=== PATIENT | female | born 1990 | race American Indian/Alaskan Native ===

== ENCOUNTER 2017-08-14 19:00 | Outpatient (CLI) | payer OTHER ==
[2017-08-14] MEDS ORDERED: LACTATED RINGERS 1,000 ML IV ONE (19:10)
[2017-08-14 19:29] VITALS: BP 115/70
[2017-08-14 20:39] LABS: Bilirubin,Urine NEG (Negative); Blood,Urine NEG (Negative); Color,Urine Yellow (Yellow); Nitrite,Urine NEG (Negative); Protein,Urine <15 mg/dL mg/dL (Negative); Urobilinogen,Urine < 2.0 mg/dL (<2.0); WBC,Urine < 1.0 /HPF (0.0-6.0)
== END 2017-08-14 21:36 | disposition home or self-care (01) ==
LOC: TRG 19:00
PROVIDERS: ATTEND Obstetrics & Gynecology Gynecology
DX: O47.02 False labor before 37 completed weeks of gestation, second trimester (principal); Z3A.20 20 weeks gestation of pregnancy
CPT/HCPCS: 59025; 81001